=== PATIENT | male | born 1940 | race Caucasian/White ===

== ENCOUNTER 2022-08-16 10:56 | Outpatient (CLI) | payer MEDICARE, BC | END 2022-08-16 10:57 | disposition home or self-care (01) | LOC: BICMRI 10:56 | PROVIDERS: ATTEND Anesthesiology Pain Medicine | DX: M47.26 Other spondylosis with radiculopathy, lumbar region (principal); M47.815 Spondylosis without myelopathy or radiculopathy, thoracolumbar region | CPT/HCPCS: 72100; 72148 ==